=== PATIENT | female | born 1960 | race Caucasian/White ===

== ENCOUNTER 2022-10-05 08:03 | Outpatient (CLI) | payer OTHER, SELFPAY ==
[2022-10-05 13:34] LABS: Albumin* 4.4 g/dL (3.3-5.0); Chloride* 105 mmol/L (96-114); Sodium* 140 mmol/L (135-149)
[2022-10-05 13:35] LABS: Potassium* 4.1 mmol/L (3.6-5.1)
[2022-10-05 13:37] LABS: Aspartate Amino Transferase* 29 U/L (12-35); Bilirubin Total* 0.6 mg/dL (0.1-1.5); Blood Urea Nitrogen* 15 mg/dL (7-30); Carbon Dioxide* 30 mmol/L (20-32); Cholesterol* 171 mg/dL (90-199); Creatinine* 0.7 mg/dL (0.5-1.5); Estimated Glomerular Filt Rate 98 ml/min; Glucose* 108 mg/dL (60-115); Triglycerides* 132 mg/dL (40-149)
[2022-10-05 13:38] LABS: Alanine Aminotransferase* 31 U/L (4-35); Alkaline Phosphatase* 73 U/L (40-150); Calcium* 9.1 mg/dL (8.4-10.6); HDL Cholesterol* 56 mg/dL (>=50); LDL Cholesterol Calculated 89 mg/dL (<100)
== END 2022-10-05 08:04 | disposition home or self-care (01) ==
LOC: LKVREF 08:04
PROVIDERS: PCP Family Medicine; Visit Provider Family Medicine
DX: Z00.00 Encounter for general adult medical examination without abnormal findings (principal); E78.00 Pure hypercholesterolemia, unspecified
CPT/HCPCS: 80053; 80061

== ENCOUNTER 2023-02-10 13:46 | Outpatient (CLI) | payer OTHER, SELFPAY | END 2023-02-10 13:47 | disposition home or self-care (01) | LOC: LKVREF 13:47 | PROVIDERS: PCP Family Medicine; Visit Provider Family Medicine | DX: I10 Essential (primary) hypertension (principal) | CPT/HCPCS: 80048 ==

== ENCOUNTER 2023-03-29 15:38 | Outpatient (CLI) | payer OTHER, SELFPAY ==
--- NOTE | 2023-03-29 15:40 | CRLHL7_ITS ---
For Patients: As a result of the Century Cures Act, medical imaging exams and procedure reports are released immediately into your electronic medical record. You may view this report before your referring provider. If you have questions, please contact your health care provider. BILATERAL SCREENING MAMMOGRAM WITH COMPUTER-AIDED DETECTION TECHNIQUE: CC and MLO views were obtained. These mammographic images have been obtained using full-field digital technique. These mammographic images were interpreted with the benefit of computer-aided detection. COMPARISON FILM: 02/06/20, 11/09/17, 01/09/15. FINDINGS: There are scattered areas of fibroglandular density IMPRESSION: There is no radiographic evidence for malignancy. ASSESSMENT: BI-RADS Category 1: Negative RECOMMENDATION: Routine screening mammogram in 1 year. A lay language report of this examination will be provided to the patient. Richie Bautista M.D. Diagnostic Radiologist [email or web address] Transcribed: 3:29 [email or web address]/Dictated by: Richie Bautista MD @ 03/30/2023 1:18:00 PM (Electronically Signed)
== END 2023-03-29 15:39 | disposition home or self-care (01) ==
LOC: MAMMO 15:39
PROVIDERS: PCP Family Medicine; Visit Provider Family Medicine
DX: Z12.31 Encounter for screening mammogram for malignant neoplasm of breast (principal)
CPT/HCPCS: 77063; 77067

== ENCOUNTER 2024-01-13 08:29 | Outpatient (CLI) | payer OTHER, SELFPAY | END 2024-01-13 08:30 | disposition home or self-care (01) | LOC: NFLDREF 01-17 19:45 | PROVIDERS: PCP Family Medicine; Referring Provider Family Medicine; Visit Provider Family Medicine | DX: E78.00 Pure hypercholesterolemia, unspecified (principal); I10 Essential (primary) hypertension; R73.9 Hyperglycemia, unspecified | CPT/HCPCS: 80053; 80061 ==

== ENCOUNTER 2024-10-22 10:13 | Outpatient (CLI) | payer OTHER, SELFPAY ==
--- NOTE | 2024-10-22 11:14 | W.ANESCHARGE ---
Anesthesia Charges Start Date/Time Anesthesia Start Date: 10/22/24 Anesthesia Start Time: 10:48 Stop Date/Time Anesthesia Stop Date: 10/22/24 Anesthesia Stop Time: 11:12 Coding CPT Codes CPT Codes: ANELorne LWR INTST SCR COLSC - 44085 ([id number]) P2 - PATIENT W/MILD SYST DISEASE, QK - REHABILITATION CASEWORKER 2-4 CNCRNT ANES PROC, QX - RIVETER PORTABLE MACHINE SVC W/ MD MED DIRECTION
--- NOTE | 2024-10-22 11:15 | W.ANESCHARGE ---
Anesthesia Charges Start Date/Time Anesthesia Start Date: 10/22/24 Anesthesia Start Time: 10:48 Stop Date/Time Anesthesia Stop Date: 10/22/24 Anesthesia Stop Time: 11:12 Coding CPT Codes CPT Codes: TEGAN LWR INTST SCR COLSC - 93549 ([id number]) QK - ENVIRONMENTAL SERVICES TECH 2-4 CNCRNT TEGAN PROC, QX - WAITANGI TRIBUNAL MEMBER SVC W/ MD MED DIRECTION, P2 - PATIENT W/MILD SYST DISEASE
== END 2024-10-22 10:14 | disposition home or self-care (01) ==
LOC: OP CLINIC 10:14
PROVIDERS: PCP Family Medicine; Visit Provider Internal Medicine
DX: Z12.11 Encounter for screening for malignant neoplasm of colon (principal)
CPT/HCPCS: 00812; 45378; J2704

== ENCOUNTER 2025-05-13 08:19 | Outpatient (CLI) | payer MEDICARE, SELFPAY | END 2025-05-13 08:20 | disposition home or self-care (01) | LOC: NFLDREF 05-22 04:16 | PROVIDERS: PCP Family Medicine; Referring Provider Family Medicine; Visit Provider Family Medicine | DX: I10 Essential (primary) hypertension (principal); R73.9 Hyperglycemia, unspecified; E78.00 Pure hypercholesterolemia, unspecified; R53.83 Other fatigue; Z00.00 Encounter for general adult medical examination without abnormal findings | CPT/HCPCS: 80053; 80061; 82306; 84443 ==